=== PATIENT | male | born 1960 | race African-American/Black ===

== ENCOUNTER 2017-08-21 20:57 | Inpatient (IN) | payer OTHER ==
[2017-08-21 21:18] VITALS: BMI 29.2
--- NOTE | 2017-08-21 21:45 | HP ---
Admission ROS [facility] Chief Complaint: SEEKING REHAB SERVICES Allergies/Adverse Reactions: Allergies Allergy/AdvReac Type Severity Reaction Status Date / Time No Known Allergies Allergy Verified 08/21/17 21:25 History of Present Illness: 56 Y.O. MAN WITH A HISTORY OF CRACK-COCAINE DEPENDENCE IS HERE FOR REHAB. HE REPORTS HE IS FORGETFUL AND CANNOT RECALL HIS LAST REHAB ADMISSION. LONGEST PERIOD CLEAN HAS BEEN 3 MONTHS. Exam Limitations: No Limitations - Ebola screening Have you traveled outside of the country in the last 21 days: No Have you had contact with anyone from an Ebola affected area: No Have you been sick,other than usual withdrawal symptoms: No Do you have a fever: No - Review of Systems Constitutional: No Symptoms Reported EENT: reports: Nose Congestion Respiratory: reports: No Symptoms reported Cardiac: reports: No Symptoms Reported GI: reports: No Symptoms Reported : reports: No Symptoms Reported Musculoskeletal: reports: Back Pain Integumentary: reports: No Symptoms Reported Neuro: reports: No Symptoms reported Endocrine: reports: No Symptoms Reported Hematology: reports: No Symptoms Reported Psychiatric: reports: Judgement Intact, Mood/Affect Appropiate, Orientated x3 Other Systems: Reviewed and Negative Patient History - Patient Medical History Hx Anemia: No Hx Asthma: No Hx Chronic Obstructive Pulmonary Disease (COPD): No Hx Cancer: No Hx Cardiac Disorders: No Hx Congestive Heart Failure: No Hx Hypertension: Yes Hx Hypercholesterolemia: Yes Hx Pacemaker: No HX Cerebrovascular Accident: No Hx Seizures: Yes (12/2016) Hx Dementia: No Hx Diabetes: No Hx Gastrointestinal Disorders: No Hx Liver Disease: No Hx Genitourinary Disorders: No Hx Sexually Transmitted Disorders: No Hx Renal Disease (ESRD): No Hx Thyroid Disease: No Hx Human Immunodeficiency Virus (HIV): Yes (since 1989) Hx Hepatitis C: No Hx Depression: Yes (no med) Hx Suicide Attempt: No Hx Bipolar Disorder: No Hx Schizophrenia: No - Patient Surgical History Past Surgical History: No Hx Neurologic Surgery: No Hx Cataract Extraction: No Hx Cardiac Surgery: No Hx Lung Surgery: No Hx Breast Surgery: No Hx Breast Biopsy: No Hx Abdominal Surgery: No Hx Appendectomy: No Hx Cholecystectomy: No Hx Genitourinary Surgery: No Hx Section: No Hx Orthopedic Surgery: No Anesthesia Reaction: No - PPD History Previous Implant?: Yes Documented Results: Negative w/proof Date: 10/27/16 Results: 0 PPD to be Administered?: Yes - Reproductive History Patient is a Female of Child Bearing Age (11 -55 yrs old): No - Smoking Cessation Smoking history: Current every day smoker Have you smoked in the past 12 months: Yes Aproximately how many cigarettes per day: 12 Cigars Per Day: 0 Hx Chewing Tobacco Use: No Initiated information on smoking cessation: Yes 'Breaking Loose' booklet given: 08/21/17 - Substance & Tx. History Hx Alcohol Use: Yes Hx Substance Use: Yes Substance Use Type: Alcohol, Cocaine Hx Substance Use Treatment: Yes (DETOX:2016; REHAB: DOES NOT RECALL) - Substances Abused Crack Route: Smoking Frequency: 1-2 times per week Amount used: $80 Age of first use: 18 Date of Last Use: 08/07/17 Family Disease History - Family Disease History Family History: Denies Admission Physical Exam [facility] - Vital Signs Vital Signs: Vital Signs - 24 hr 08/21/17 21:10 Temperature 97.8 F Pulse Rate 88 Respiratory 18 Rate Blood Pressure 100/68 - Physical General Appearance: Yes: Disheveled HEENTM: Yes: Hearing grossly Normal, Normal ENT Inspection, Normocephalic, Normal Voice Respiratory: Yes: Chest Non-Tender, Lungs Clear, Normal Breath Sounds, No Respiratory Distress, No Accessory Muscle Use Neck: Yes: No masses,lesions,Nodules, Trachea in good position Breast: Yes: Breast Exam Deferred Cardiology: Yes: Regular Rhythm, Regular Rate Abdominal: Yes: Normal Bowel Sounds, Non Tender, Flat, Soft Genitourinary: Yes: Other (NO COMPLAINTS REPORTED) Back: Yes: Normal Inspection Musculoskeletal: Yes: full range of Motion, Gait Steady, Pelvis Stable Extremities: Yes: Normal Capillary Refill, Normal Inspection, Normal Range of Motion, Non-Tender Neurological: Yes: Fully Oriented, Alert, Motor Strength 5/5, Normal Mood/Affect , Normal Response Integumentary: Yes: Normal Color, Dry, Warm Lymphatic: Yes: Within Normal Limits - Diagnostic (1) Cocaine dependence Current Visit: Yes Status: Chronic (2) HIV (human immunodeficiency virus infection) Current Visit: Yes Status: Chronic (3) Hypertension Current Visit: Yes Status: Chronic (4) Hypocholesterolemia Current Visit: Yes Status: Chronic (5) Nicotine dependence Current Visit: Yes Status: Chronic (6) Seizure Current Visit: Yes Status: Chronic Cleared for Admission [facility] - Detox or Rehab [facility] Level of Care: Observation Bed Claeared for Rehab Admission: Yes [facility] Breath Alcohol Content Breath Alcohol Content: 0 Urine Drug Screen - Results Drug Screen Negative: No Urine Drug Screen Results: BAR-Barbiturates Inpatient Rehab Admission - Initial Determination Are CD services needed?: Yes Free of communicable disease: No Not in need of hospitalization: Yes - Rehab Admission Criteria Previous failed treatment: Yes Poor recovery environment: Yes Comorbidities: Yes Lacks judgement: No Patient is meeting Inpatient Rehab admission criteria:: Yes
[2017-08-21] MEDS ORDERED: P-EPHED 60MG/TRIPROLIDI 2.5MG TABLET PO PRN (21:47)
[2017-08-21] MEDS ORDERED: MAGNESIUM HYDROX 2400MG/30ML ORAL SUSPENSION 30 ML CUP PO PRN (21:47)
[2017-08-21] MEDS ORDERED: hydrOXYzine PAMOATE 50 MG CAPSULE (FP) PO PRN (21:47)
[2017-08-21] MEDS ORDERED: MENTHOL/PHENOL 1 EACH UD MM PRN (21:47)
[2017-08-21] MEDS ORDERED: ACETAMINOPHEN 325 MG TABLET (FP) PO PRN (21:47)
[2017-08-21] MEDS ORDERED: IBUPROFEN 400 MG TABLET (FP) PO PRN (21:47)
[2017-08-21] MEDS ORDERED: guaiFENesin/D-METHORPHAN HB 10 ML UNIT-DOSE CUPS PO PRN (21:47)
[2017-08-21] MEDS ORDERED: diphenhydrAMINE HCL 50 MG CAPSULE PO PRN (21:47)
[2017-08-21] MEDS ORDERED: MAG HYDROX/AL HYDROX/SIMETH 30 ML UNIT-DOSE CUP PO PRN (21:47)
[2017-08-21] MEDS ORDERED: MAGNESIUM CITRATE 300 ML BOTTLE PO PRN (21:47)
[2017-08-21] MEDS ORDERED: NICOTINE POLACRILEX 2 MG GUM BC PRN (21:47)
[2017-08-21] MEDS ORDERED: LOPERAMIDE HCL 2 MG CAPSULE PO PRN (21:47)
[2017-08-21] MEDS: THIAMINE HCL 100 MG TABLET (FP) PO SCH (23:47)
[2017-08-21] MEDS ORDERED: TUBERCULIN PPD 5 TU/0.1ML VIAL ID ONE (23:51)
--- NOTE | 2017-08-22 06:52 | HP ---
Psychiatrist Admission - Data Date of interview: 08/22/17 Admission source: Self-referred Identifying data: This is the first [facility] admission for this 56 years old single Black male, unemployed on SSI, domiciled living in a residence for HIV afflicted persons Medical History: Significant for HTN, Hyperlipidemia, Seizure Disorder and HIV+ since 1989. Smokes 12-15 cigarettes daily Psychiatric History: Patient is a poor historian and is unable to provide a coherent history. He is on seroquel and cannot tell the reason for being on it. His residence was contacted and mortgage underwriter was given his psychiatrist's name and number:Dr Chad Bhandari tel . Contact with Dr Bhandari reveals that patient has history of psychosis related to his substance abuse( alcohol, cocaine). He is on Seroquel 200 mg po HS for that purpose in addition to insomnia. No history of previous psychiatric hospitalization or suicidal attempt reported. Physical/Sexual Abuse/Trauma History: Denies history of verbal, physical or sexual abuse as well as DV relationship Additional Comment: Denies criminal history Vital Signs: Vital Signs - 24 hr 08/21/17 08/22/17 08/22/17 21:10 01:11 03:30 Temperature 97.8 F Pulse Rate 88 Respiratory 18 18 18 Rate Blood Pressure 100/68 Allergies/Adverse Reactions: Allergies Allergy/AdvReac Type Severity Reaction Status Date / Time No Known Allergies Allergy Verified 08/21/17 21:25 Date of last physical exam: 08/21/17 Concur with the findings of this exam: Yes - Substance Abuse/Tx History Hx Alcohol Use: No Hx Substance Use: Yes Substance Use Type: Cocaine (Started smoking crack cocaine at age 18, consumes $ 80 worth 1-2 times weekly. Last smoked on 08/07/17) Hx Substance Use Treatment: Yes (one previous inpt detox admission @ [facility]) Mental Status Exam - Mental Status Exam Alert and Oriented to: Time, Place, Person Cognitive Function: Fair Patient Appearance: Well Groomed Mood: Hopeful, Euthymic Affect: Appropriate Patient Behavior: Cooperative Speech Pattern: Clear Voice Loudness: Normal, Limited Variation Thought Disorder: Not Present Hallucinations: Denies Suicidal Ideation: Denies Homicidal Ideation: Denies Insight/Judgement: Fair Sleep: Poorly Appetite: Good Muscle strength/Tone: Normal Gait/Station: Normal Psychiatric Findings - Problem List ([place] 1, 2,3) (1) Cocaine dependence Current Visit: Yes Status: Chronic (2) Nicotine dependence Current Visit: Yes Status: Chronic (3) Substance-induced psychotic disorder with delusions Current Visit: Yes Status: Acute (4) Substance-induced sleep disorder Current Visit: Yes Status: Acute (5) HIV (human immunodeficiency virus infection) Current Visit: Yes Status: Chronic (6) Hypertension Current Visit: Yes Status: Chronic (7) Hypocholesterolemia Current Visit: Yes Status: Chronic (8) Seizure disorder Current Visit: Yes Status: Acute - Initial Treatment Plan Initial Treatment Plan: 1) Continue Seroquel 200 mg po HS. 2) Monitor progress
[2017-08-22 09:40] LABS: MCH 30.2 pg (25.7-33.7); MCHC 32.8 g/dl (32.0-35.9); MEAN PLT VOLUME 9.2 fl (7.5-11.1); PLATELET COUNT 175 K/MM3 (134-434); RDW 12.8 % (11.9-15.9); WHITE BLOOD COUNT 11.5 K/mm3 (4.0-10.0)
[2017-08-22 09:44] LABS: URINE APPEARANCE SLCLOUDY; URINE BILIRUBIN NEGATIVE (NEGATIVE); URINE BLOOD 1+ (NEGATIVE); URINE COLOR YELLOW; URINE GLUCOSE (UA) NEGATIVE (NEGATIVE); URINE KETONE NEGATIVE (NEGATIVE); URINE NITRITE NEGATIVE (NEGATIVE); URINE PROTEIN NEGATIVE (NEGATIVE); URINE UROBILINOGEN 4.0 E.U/dl mg/dL (0.2-1.0)
[2017-08-22 09:52] LABS: CALCIUM OXALATE CRYSTALS RARE /hpf (NONE SEEN); URINE MUCUS RARE; URINE RBC 2 /hpf (0-3); URINE WBC <1 /hpf (3-5)
--- NOTE | 2017-08-22 09:55 | EKG ---
Test Reason : Blood Pressure : / mmHG Vent. Rate : 109 BPM Atrial Rate : 109 BPM P-R Int : 184 ms QRS Dur : 082 ms QT Int : 338 ms P-R-T Axes : 056 -21 014 degrees QTc Int : 455 ms SINUS TACHYCARDIA NONSPECIFIC T WAVE ABNORMALITY Confirmed by HOA LIPSCOMB MD ([id number]) on 08/22/2017 9:55:16 AM Referred By: Confirmed By:HOA LIPSCOMB MD
[2017-08-22] MEDS ORDERED: PHENYTOIN 50 MG TAB.CHEW PO SCH (10:00)
[2017-08-22] MEDS: NICOTINE 14 MG/24 HOURS TOPICAL PATCH TD SCH (10:34)
[2017-08-22] MEDS: ASPIRIN 81 MG CHEWABLE TABLETS PO SCH (10:34)
[2017-08-22] MEDS: FUROSEMIDE 40 MG TABLET (FP) PO SCH (10:34)
[2017-08-22 10:38] LABS: ALBUMIN 3.4 g/dl (3.4-5.0); ALK PHOS 221 U/L (45-117); ANION GAP 8 (8-16); BILIRUBIN,TOTAL 0.6 mg/dL (0.2-1.0); CALCIUM 8.5 mg/dL (8.5-10.1); CO2 26 mmol/L (21-32); CREATININE 1.1 mg/dL (0.7-1.3); GLUCOSE,RANDOM 84 mg/dL (74-106); SGOT/AST 18 U/L (15-37); SGPT/ALT 27 U/L (12-78); TOT PROT 7.2 g/dl (6.4-8.2)
[2017-08-22] MEDS: LISINOPRIL 10 MG TABLET (FP) PO SCH (10:38)
[2017-08-22] MEDS: PRENATAL VITAMINS W/ FOLIC ACID TABLET (FP) PO SCH (11:34)
[2017-08-22] MEDS: METOPROLOL TARTRATE 25 MG TABLET (FP) PO SCH (11:34)
[2017-08-22] MEDS ORDERED: FLU VACCINE QUAD 60 MCG/0.5 ML (MDV 17-18) IM ONE (12:00)
[2017-08-22] MEDS: ABACAVIR/DOLUTEGRAVIR/LAMIVUDI (TRIUMEQ) TABLET -NF PO SCH (12:21)
[2017-08-22] MEDS: PHENYTOIN NA EXTENDED 100 MG CAPSULE (FP) PO SCH ×2 (13:13→22:14)
[2017-08-22] MEDS ORDERED: PT OWN MED DRAWER 7, Y5N ONE (13:36)
[2017-08-22 16:59] LABS: URINE LEUK ESTERASE Negative (NEGATIVE)
[2017-08-22] MEDS: QUEtiapine FUMARATE 200 MG TABLET PO SCH (22:14)
[2017-08-22] MEDS: THIAMINE HCL 100 MG TABLET (FP) PO SCH (22:14)
[2017-08-22] MEDS: ATORVASTATIN CA 10 MG TABLET (FP) PO SCH (22:14)
[2017-08-23] MEDS: PHENYTOIN NA EXTENDED 100 MG CAPSULE (FP) PO SCH ×3 (06:26→21:08)
[2017-08-23] MEDS: NICOTINE 14 MG/24 HOURS TOPICAL PATCH TD SCH (09:40)
[2017-08-23] MEDS: FUROSEMIDE 40 MG TABLET (FP) PO SCH (09:40)
[2017-08-23] MEDS: ABACAVIR/DOLUTEGRAVIR/LAMIVUDI (TRIUMEQ) TABLET -NF PO SCH (09:40)
[2017-08-23] MEDS: LISINOPRIL 10 MG TABLET (FP) PO SCH (09:40)
[2017-08-23] MEDS: PRENATAL VITAMINS W/ FOLIC ACID TABLET (FP) PO SCH (09:40)
[2017-08-23] MEDS: ASPIRIN 81 MG CHEWABLE TABLETS PO SCH (09:40)
[2017-08-23] MEDS: METOPROLOL TARTRATE 25 MG TABLET (FP) PO SCH (09:40)
--- NOTE | 2017-08-23 13:24 | EKG ---
Test Reason : Blood Pressure : / mmHG Vent. Rate : 084 BPM Atrial Rate : 084 BPM P-R Int : 208 ms QRS Dur : 088 ms QT Int : 378 ms P-R-T Axes : 049 -07 022 degrees QTc Int : 446 ms NORMAL SINUS RHYTHM LOW VOLTAGE QRS NONSPECIFIC T WAVE ABNORMALITY ABNORMAL ECG WHEN COMPARED WITH ECG OF 21-AUG-2017 23:31, NO SIGNIFICANT CHANGE WAS FOUND Confirmed by SRI DIAS, OSITO ([id number]) on 08/23/2017 1:24:00 PM Referred By: Caterina TRAN Confirmed By:OSITO FIERRO MD
[2017-08-23] MEDS: THIAMINE HCL 100 MG TABLET (FP) PO SCH (21:08)
[2017-08-23] MEDS: ATORVASTATIN CA 10 MG TABLET (FP) PO SCH (21:08)
[2017-08-23] MEDS: QUEtiapine FUMARATE 200 MG TABLET PO SCH (21:08)
[2017-08-24] MEDS: PHENYTOIN NA EXTENDED 100 MG CAPSULE (FP) PO SCH ×3 (06:41→21:40)
[2017-08-24] MEDS: PRENATAL VITAMINS W/ FOLIC ACID TABLET (FP) PO SCH (10:12)
[2017-08-24] MEDS: ASPIRIN 81 MG CHEWABLE TABLETS PO SCH (10:12)
[2017-08-24] MEDS: NICOTINE 14 MG/24 HOURS TOPICAL PATCH TD SCH (10:12)
[2017-08-24] MEDS: LISINOPRIL 10 MG TABLET (FP) PO SCH (10:12)
[2017-08-24] MEDS: METOPROLOL TARTRATE 25 MG TABLET (FP) PO SCH (10:12)
[2017-08-24] MEDS: FUROSEMIDE 40 MG TABLET (FP) PO SCH (10:12)
[2017-08-24] MEDS: ABACAVIR/DOLUTEGRAVIR/LAMIVUDI (TRIUMEQ) TABLET -NF PO SCH (10:13)
[2017-08-24 11:27] LABS: URINE APPEARANCE SLCLOUDY; URINE BILIRUBIN NEGATIVE (NEGATIVE); URINE BLOOD NEGATIVE (NEGATIVE); URINE COLOR AMBER; URINE GLUCOSE (UA) NEGATIVE (NEGATIVE); URINE KETONE NEGATIVE (NEGATIVE); URINE NITRITE NEGATIVE (NEGATIVE); URINE PROTEIN NEGATIVE (NEGATIVE)
[2017-08-24 17:25] LABS: URINE LEUK ESTERASE Negative (NEGATIVE)
[2017-08-24] MEDS: ATORVASTATIN CA 10 MG TABLET (FP) PO SCH (21:40)
[2017-08-24] MEDS: QUEtiapine FUMARATE 200 MG TABLET PO SCH (21:40)
[2017-08-24] MEDS: THIAMINE HCL 100 MG TABLET (FP) PO SCH (21:40)
[2017-08-25] MEDS: PHENYTOIN NA EXTENDED 100 MG CAPSULE (FP) PO SCH ×3 (06:16→21:02)
[2017-08-25] MEDS: PRENATAL VITAMINS W/ FOLIC ACID TABLET (FP) PO SCH (09:52)
[2017-08-25] MEDS: ASPIRIN 81 MG CHEWABLE TABLETS PO SCH (09:53)
[2017-08-25] MEDS: ABACAVIR/DOLUTEGRAVIR/LAMIVUDI (TRIUMEQ) TABLET -NF PO SCH (09:54)
[2017-08-25] MEDS: NICOTINE 14 MG/24 HOURS TOPICAL PATCH TD SCH (09:54)
[2017-08-25] MEDS: LISINOPRIL 10 MG TABLET (FP) PO SCH (09:55)
[2017-08-25] MEDS: FUROSEMIDE 40 MG TABLET (FP) PO SCH (09:55)
[2017-08-25] MEDS: METOPROLOL TARTRATE 25 MG TABLET (FP) PO SCH (09:55)
[2017-08-25] MEDS: ATORVASTATIN CA 10 MG TABLET (FP) PO SCH (21:02)
[2017-08-25] MEDS: THIAMINE HCL 100 MG TABLET (FP) PO SCH (21:02)
[2017-08-25] MEDS: QUEtiapine FUMARATE 200 MG TABLET PO SCH (21:02)
[2017-08-26] MEDS: PHENYTOIN NA EXTENDED 100 MG CAPSULE (FP) PO SCH ×3 (05:55→21:33)
[2017-08-26] MEDS: LISINOPRIL 10 MG TABLET (FP) PO SCH (09:51)
[2017-08-26] MEDS: PRENATAL VITAMINS W/ FOLIC ACID TABLET (FP) PO SCH (09:51)
[2017-08-26] MEDS: METOPROLOL TARTRATE 25 MG TABLET (FP) PO SCH (09:51)
[2017-08-26] MEDS: FUROSEMIDE 40 MG TABLET (FP) PO SCH (09:51)
[2017-08-26] MEDS: NICOTINE 14 MG/24 HOURS TOPICAL PATCH TD SCH (09:51)
[2017-08-26] MEDS: ASPIRIN 81 MG CHEWABLE TABLETS PO SCH (09:51)
[2017-08-26] MEDS: ABACAVIR/DOLUTEGRAVIR/LAMIVUDI (TRIUMEQ) TABLET -NF PO SCH (10:28)
[2017-08-26] MEDS: THIAMINE HCL 100 MG TABLET (FP) PO SCH (21:33)
[2017-08-26] MEDS: QUEtiapine FUMARATE 200 MG TABLET PO SCH (21:33)
[2017-08-26] MEDS: ATORVASTATIN CA 10 MG TABLET (FP) PO SCH (21:33)
[2017-08-27] MEDS: PHENYTOIN NA EXTENDED 100 MG CAPSULE (FP) PO SCH ×3 (06:13→21:13)
[2017-08-27] MEDS: FUROSEMIDE 40 MG TABLET (FP) PO SCH (09:52)
[2017-08-27] MEDS: NICOTINE 14 MG/24 HOURS TOPICAL PATCH TD SCH (09:52)
[2017-08-27] MEDS: ABACAVIR/DOLUTEGRAVIR/LAMIVUDI (TRIUMEQ) TABLET -NF PO SCH (09:52)
[2017-08-27] MEDS: LISINOPRIL 10 MG TABLET (FP) PO SCH (09:52)
[2017-08-27] MEDS: METOPROLOL TARTRATE 25 MG TABLET (FP) PO SCH (09:52)
[2017-08-27] MEDS: ASPIRIN 81 MG CHEWABLE TABLETS PO SCH (09:52)
[2017-08-27] MEDS: PRENATAL VITAMINS W/ FOLIC ACID TABLET (FP) PO SCH (09:52)
[2017-08-27] MEDS: ATORVASTATIN CA 10 MG TABLET (FP) PO SCH (21:13)
[2017-08-27] MEDS: QUEtiapine FUMARATE 200 MG TABLET PO SCH (21:13)
[2017-08-27] MEDS: THIAMINE HCL 100 MG TABLET (FP) PO SCH (21:13)
[2017-08-28] MEDS: PHENYTOIN NA EXTENDED 100 MG CAPSULE (FP) PO SCH ×3 (06:25→21:27)
[2017-08-28] MEDS: PRENATAL VITAMINS W/ FOLIC ACID TABLET (FP) PO SCH (10:03)
[2017-08-28] MEDS: METOPROLOL TARTRATE 25 MG TABLET (FP) PO SCH (10:03)
[2017-08-28] MEDS: FUROSEMIDE 40 MG TABLET (FP) PO SCH (10:03)
[2017-08-28] MEDS: ASPIRIN 81 MG CHEWABLE TABLETS PO SCH (10:03)
[2017-08-28] MEDS: LISINOPRIL 10 MG TABLET (FP) PO SCH (10:03)
[2017-08-28] MEDS: ABACAVIR/DOLUTEGRAVIR/LAMIVUDI (TRIUMEQ) TABLET -NF PO SCH (10:04)
[2017-08-28] MEDS: NICOTINE 14 MG/24 HOURS TOPICAL PATCH TD SCH (10:05)
[2017-08-28] MEDS: THIAMINE HCL 100 MG TABLET (FP) PO SCH (21:27)
[2017-08-28] MEDS: QUEtiapine FUMARATE 200 MG TABLET PO SCH (21:27)
[2017-08-28] MEDS: ATORVASTATIN CA 10 MG TABLET (FP) PO SCH (21:27)
[2017-08-29] MEDS: PHENYTOIN NA EXTENDED 100 MG CAPSULE (FP) PO SCH ×3 (06:02→21:27)
[2017-08-29] MEDS: NICOTINE 14 MG/24 HOURS TOPICAL PATCH TD SCH (09:44)
[2017-08-29] MEDS: LISINOPRIL 10 MG TABLET (FP) PO SCH (09:44)
[2017-08-29] MEDS: PRENATAL VITAMINS W/ FOLIC ACID TABLET (FP) PO SCH (09:44)
[2017-08-29] MEDS: METOPROLOL TARTRATE 25 MG TABLET (FP) PO SCH (09:44)
[2017-08-29] MEDS: ABACAVIR/DOLUTEGRAVIR/LAMIVUDI (TRIUMEQ) TABLET -NF PO SCH (09:44)
[2017-08-29] MEDS: FUROSEMIDE 40 MG TABLET (FP) PO SCH (09:44)
[2017-08-29] MEDS: ASPIRIN 81 MG CHEWABLE TABLETS PO SCH (09:44)
[2017-08-29] MEDS: THIAMINE HCL 100 MG TABLET (FP) PO SCH (21:27)
[2017-08-29] MEDS: ATORVASTATIN CA 10 MG TABLET (FP) PO SCH (21:27)
[2017-08-29] MEDS: QUEtiapine FUMARATE 200 MG TABLET PO SCH (21:27)
[2017-08-30] MEDS: PHENYTOIN NA EXTENDED 100 MG CAPSULE (FP) PO SCH ×3 (06:19→21:39)
[2017-08-30] MEDS: METOPROLOL TARTRATE 25 MG TABLET (FP) PO SCH (09:54)
[2017-08-30] MEDS: LISINOPRIL 10 MG TABLET (FP) PO SCH (09:54)
[2017-08-30] MEDS: ASPIRIN 81 MG CHEWABLE TABLETS PO SCH (09:54)
[2017-08-30] MEDS: FUROSEMIDE 40 MG TABLET (FP) PO SCH (09:54)
[2017-08-30] MEDS: NICOTINE 14 MG/24 HOURS TOPICAL PATCH TD SCH (09:55)
[2017-08-30] MEDS: PRENATAL VITAMINS W/ FOLIC ACID TABLET (FP) PO SCH (09:56)
[2017-08-30] MEDS: ABACAVIR/DOLUTEGRAVIR/LAMIVUDI (TRIUMEQ) TABLET -NF PO SCH (09:56)
[2017-08-30] MEDS: THIAMINE HCL 100 MG TABLET (FP) PO SCH (21:39)
[2017-08-30] MEDS: ATORVASTATIN CA 10 MG TABLET (FP) PO SCH (21:39)
[2017-08-30] MEDS: QUEtiapine FUMARATE 200 MG TABLET PO SCH (21:39)
[2017-08-31] MEDS: PHENYTOIN NA EXTENDED 100 MG CAPSULE (FP) PO SCH ×3 (06:14→21:08)
[2017-08-31] MEDS: METOPROLOL TARTRATE 25 MG TABLET (FP) PO SCH (10:38)
[2017-08-31] MEDS: FUROSEMIDE 40 MG TABLET (FP) PO SCH (10:38)
[2017-08-31] MEDS: LISINOPRIL 10 MG TABLET (FP) PO SCH (10:38)
[2017-08-31] MEDS: ASPIRIN 81 MG CHEWABLE TABLETS PO SCH (10:38)
[2017-08-31] MEDS: PRENATAL VITAMINS W/ FOLIC ACID TABLET (FP) PO SCH (10:38)
[2017-08-31] MEDS: ABACAVIR/DOLUTEGRAVIR/LAMIVUDI (TRIUMEQ) TABLET -NF PO SCH (10:38)
[2017-08-31] MEDS: NICOTINE 14 MG/24 HOURS TOPICAL PATCH TD SCH (10:39)
[2017-08-31] MEDS: THIAMINE HCL 100 MG TABLET (FP) PO SCH (21:08)
[2017-08-31] MEDS: ATORVASTATIN CA 10 MG TABLET (FP) PO SCH (21:08)
[2017-08-31] MEDS: QUEtiapine FUMARATE 200 MG TABLET PO SCH (21:08)
[2017-09-01] MEDS: PHENYTOIN NA EXTENDED 100 MG CAPSULE (FP) PO SCH ×3 (05:59→21:09)
[2017-09-01] MEDS: ASPIRIN 81 MG CHEWABLE TABLETS PO SCH (10:25)
[2017-09-01] MEDS: LISINOPRIL 10 MG TABLET (FP) PO SCH (10:25)
[2017-09-01] MEDS: FUROSEMIDE 40 MG TABLET (FP) PO SCH (10:25)
[2017-09-01] MEDS: ABACAVIR/DOLUTEGRAVIR/LAMIVUDI (TRIUMEQ) TABLET -NF PO SCH (10:25)
[2017-09-01] MEDS: PRENATAL VITAMINS W/ FOLIC ACID TABLET (FP) PO SCH (10:25)
[2017-09-01] MEDS: NICOTINE 14 MG/24 HOURS TOPICAL PATCH TD SCH (10:26)
[2017-09-01] MEDS: METOPROLOL TARTRATE 25 MG TABLET (FP) PO SCH (10:47)
[2017-09-01] MEDS: QUEtiapine FUMARATE 200 MG TABLET PO SCH (21:09)
[2017-09-01] MEDS: THIAMINE HCL 100 MG TABLET (FP) PO SCH (21:09)
[2017-09-01] MEDS: ATORVASTATIN CA 10 MG TABLET (FP) PO SCH (21:09)
[2017-09-02] MEDS: PHENYTOIN NA EXTENDED 100 MG CAPSULE (FP) PO SCH ×3 (06:16→21:39)
[2017-09-02] MEDS: FUROSEMIDE 40 MG TABLET (FP) PO SCH (09:44)
[2017-09-02] MEDS: PRENATAL VITAMINS W/ FOLIC ACID TABLET (FP) PO SCH (09:44)
[2017-09-02] MEDS: METOPROLOL TARTRATE 25 MG TABLET (FP) PO SCH (09:44)
[2017-09-02] MEDS: ASPIRIN 81 MG CHEWABLE TABLETS PO SCH (09:45)
[2017-09-02] MEDS: LISINOPRIL 10 MG TABLET (FP) PO SCH (09:45)
[2017-09-02] MEDS: NICOTINE 14 MG/24 HOURS TOPICAL PATCH TD SCH (09:46)
[2017-09-02] MEDS: ABACAVIR/DOLUTEGRAVIR/LAMIVUDI (TRIUMEQ) TABLET -NF PO SCH (10:25)
[2017-09-02] MEDS: THIAMINE HCL 100 MG TABLET (FP) PO SCH (21:39)
[2017-09-02] MEDS: ATORVASTATIN CA 10 MG TABLET (FP) PO SCH (21:39)
[2017-09-02] MEDS: QUEtiapine FUMARATE 200 MG TABLET PO SCH (21:39)
[2017-09-03] MEDS: PHENYTOIN NA EXTENDED 100 MG CAPSULE (FP) PO SCH ×3 (06:18→21:19)
[2017-09-03] MEDS: LISINOPRIL 10 MG TABLET (FP) PO SCH (09:37)
[2017-09-03] MEDS: ASPIRIN 81 MG CHEWABLE TABLETS PO SCH (09:37)
[2017-09-03] MEDS: METOPROLOL TARTRATE 25 MG TABLET (FP) PO SCH (09:37)
[2017-09-03] MEDS: FUROSEMIDE 40 MG TABLET (FP) PO SCH (09:37)
[2017-09-03] MEDS: PRENATAL VITAMINS W/ FOLIC ACID TABLET (FP) PO SCH (09:37)
[2017-09-03] MEDS: NICOTINE 14 MG/24 HOURS TOPICAL PATCH TD SCH (09:38)
[2017-09-03] MEDS: ABACAVIR/DOLUTEGRAVIR/LAMIVUDI (TRIUMEQ) TABLET -NF PO SCH (09:38)
[2017-09-03] MEDS: ATORVASTATIN CA 10 MG TABLET (FP) PO SCH (21:19)
[2017-09-03] MEDS: QUEtiapine FUMARATE 200 MG TABLET PO SCH (21:19)
[2017-09-03] MEDS: THIAMINE HCL 100 MG TABLET (FP) PO SCH (21:19)
[2017-09-04] MEDS: PHENYTOIN NA EXTENDED 100 MG CAPSULE (FP) PO SCH (06:12)
[2017-09-04 06:52] VITALS: BP 112/60; PULSE 101; TEMP 98.8
[2017-09-04] MEDS: METOPROLOL TARTRATE 25 MG TABLET (FP) PO SCH (09:20)
[2017-09-04] MEDS: PRENATAL VITAMINS W/ FOLIC ACID TABLET (FP) PO SCH (09:21)
[2017-09-04] MEDS: FUROSEMIDE 40 MG TABLET (FP) PO SCH (09:21)
[2017-09-04] MEDS: LISINOPRIL 10 MG TABLET (FP) PO SCH (09:21)
[2017-09-04] MEDS: ASPIRIN 81 MG CHEWABLE TABLETS PO SCH (09:21)
[2017-09-04] MEDS: ABACAVIR/DOLUTEGRAVIR/LAMIVUDI (TRIUMEQ) TABLET -NF PO SCH (09:21)
[2017-09-04] MEDS: NICOTINE 14 MG/24 HOURS TOPICAL PATCH TD SCH (09:22)
--- NOTE | 2017-09-04 10:03 | PN ---
Psychiatric Progress Note Vital Signs: Vital Signs Period Temp Pulse Resp BP Sys/[place] Pulse Ox Last 24 Hr 98.8 F 101 18-18 112/60 Date of Session: 09/04/17 Chief Complaint:: Discharge Note HPI: Patient addressing Cocaine Dependence comorbid with Nicotine Dependence, Substance-induced Psychotic Disorder with Delusions and Substance-induced Sleep Disorder ROS: HIV=, HTN, Hyperlipidemia and Seizure Disorder were medically managed Current Medications: Active Medications Generic Name Dose Route Start Last Admin Trade Name Freq PRN Reason Stop Dose Admin Acetaminophen 650 mg 08/21/17 21:47 Tylenol - PO Q4H PRN PAIN Al Hydroxide/Mg Hydroxide 30 ml 08/21/17 21:47 Mylanta Oral Suspension - PO Q6H PRN DYSPEPSIA Aspirin 81 mg 08/22/17 10:00 09/04/17 09:21 Asa - PO 81 mg DAILY DONNY Administration Atorvastatin Calcium 10 mg 08/22/17 22:00 09/03/17 21:19 Lipitor - PO 10 mg HS DONNY Administration Diphenhydramine HCl 50 mg 08/21/17 21:47 Benadryl - PO HSMR1 PRN INSOMNIA Eucalyptus/Menthol/Phenol/Sorbitol 1 each 08/21/17 21:47 Cepastat Lozenge - MM Q4H PRN SORE THROAT Furosemide 40 mg 08/22/17 10:00 09/04/17 09:21 Lasix - PO 40 mg DAILY DONNY Administration Guaifenesin 10 ml 08/21/17 21:47 Robitussin Dm - PO Q6H PRN COUGH Hydroxyzine Pamoate 50 mg 08/21/17 21:47 Vistaril - PO Q4H PRN AGITATION Ibuprofen 400 mg 08/21/17 21:47 Motrin - PO Q6H PRN SEVERE PAIN Lisinopril 10 mg 08/22/17 10:00 09/04/17 09:21 Prinivil PO 10 mg DAILY DONNY Administration Loperamide HCl 4 mg 08/21/17 21:47 Imodium - PO Q6H PRN DIARRHEA Magnesium Citrate 300 ml 08/21/17 21:47 Citroma - PO Q48H PRN CONSTIPATION Magnesium Hydroxide 30 ml 08/21/17 21:47 Milk Of Magnesia - PO DAILY PRN CONSTIPATION Metoprolol Tartrate 50 mg 08/22/17 10:00 09/04/17 09:20 Lopressor - PO 50 mg DAILY DONNY Administration Nicotine 14 mg 08/22/17 10:00 09/04/17 09:22 Nicoderm Patch - TD Not Given DAILY DONNY Nicotine Polacrilex 2 mg 08/21/17 21:47 Nicorette Gum - BC Q2H PRN NICOTINE REPLACEMENT RX Phenytoin Sodium 100 mg 08/22/17 14:00 09/04/17 06:12 Dilantin - PO 100 mg TID DONNY Administration Multivit/Folic Acid/Iron 1 tab 08/22/17 10:00 09/04/17 09:21 Vitamins (Sjr) - PO 1 tab DAILY DONNY Administration Pseudoephedrine/Triprolidine 1 combo 08/21/17 21:47 Actifed - PO TID PRN NASAL CONGESTION Quetiapine Fumarate 200 mg 08/22/17 22:00 09/03/17 21:19 Seroquel - PO 200 mg HS DONNY Administration Thiamine HCl 100 mg 08/21/17 22:00 09/03/17 21:19 Vitamin B1 - PO 100 mg HS DONNY Administration Current Side Effect: No Lab tests ordered: Yes Lab tests reviewed: Yes Provider note:: Patient has completed this program today. He has met his treatment goals and will continue to address his issues by attending AA/NA since he has refused referral for outpatient treatment. Told rfp writer that from his participation in this program, he has learned the importance of sobriety and the steps that he has to mac to achieve it, He responded well to Seroquel 200mg po HS. Script for 30 days supply of that medication is electronically transmitted to [facility] at [address] [place] [id number] Total face to face time:: 35 Mental Status Exam - Mental Status Exam Alert and Oriented to: Time, Place, Person Cognitive Function: Fair Patient Appearance: Well Groomed Mood: Hopeful, Euthymic Affect: Appropriate Patient Behavior: Cooperative Speech Pattern: Clear Voice Loudness: Normal Thought Process: Intact Thought Disorder: Not Present Hallucinations: Denies Suicidal Ideation: Denies Homicidal Ideation: Denies Insight/Judgement: Fair Sleep: Fair Appetite: Good Muscle strength/Tone: Normal Gait/Station: Normal Psychiatric Treatment Plan - Problem List (1) Cocaine dependence Current Visit: Yes (2) Nicotine dependence Current Visit: Yes (3) Substance-induced psychotic disorder with delusions Current Visit: Yes (4) Substance-induced sleep disorder Current Visit: Yes (5) HIV (human immunodeficiency virus infection) Current Visit: Yes (6) Hypertension Current Visit: Yes (7) Hypocholesterolemia Current Visit: Yes (8) Seizure disorder Current Visit: Yes Initial treatment plan: Patient is discharged today and will be attending AA/NA as he has refused referral to [facility]
== END 2017-09-04 11:45 | disposition home or self-care (01) | DRG 895 ==
LOC: YASAS 20:57 → Y3W 21:29
PROVIDERS: ADMIT Psychiatry & Neurology Psychiatry; ATTEND Psychiatry & Neurology Psychiatry
PROC: HZ42ZZZ Group Counseling for Substance Abuse Treatment, Cognitive-Behavioral (ICD-10-PCS; principal; 2017-08-21)
DX: F14.20 Cocaine dependence, uncomplicated (principal); F19.282 Other psychoactive substance dependence with psychoactive substance-induced sleep disorder; F17.210 Nicotine dependence, cigarettes, uncomplicated; F19.24 Other psychoactive substance dependence with psychoactive substance-induced mood disorder; I10 Essential (primary) hypertension; E78.00 Pure hypercholesterolemia, unspecified; G40.909 Epilepsy, unspecified, not intractable, without status epilepticus; Z21 Asymptomatic human immunodeficiency virus [HIV] infection status
CPT/HCPCS: 36415; 80053; 80185; 81003; 81015; 85027; 86593; 90688; 93005; 93010; G0008